=== PATIENT | female | born 1960 | race Two or more races ===

== ENCOUNTER 2016-08-17 15:27 | Emergency (ER) | payer OTHER ==
[~2016-08-17] VITALS: Ht 165.1 cm; Wt 61.2 kg
[2016-08-17 15:45] VITALS: BP 102/64
[2016-08-17 16:00] VITALS: BP 102/64
--- NOTE | 2016-08-17 17:33 | Emergency Room Report ---
History of Present Illness General Chief Complaint: Upper Extremity Injury Source: Patient Present Illness HPI Pt LWBS Allergies: Coded Allergies: No Known Allergies (Unverified , 08/17/16) Nursing Documentation-[facility] Past Medical History: No Stated History Physical Exam Vital Signs Date Time Temp Pulse Resp B/P Pulse Ox O2 Delivery O2 Flow Rate FiO2 08/17/16 15:39 98.4 77 18 102/64 95 Room Air Medical Decision Making PA Attestation Dr. Mason is my supervising physician. Patient management was discussed with my supervising physician Diagnostic Impression: Primary Impression: Injury of upper extremity ER Course Pt LWBS Chest X-Ray Diagnostic Results Chest X-Ray Ordered: No Last Vital Signs Date Time Temp Pulse Resp B/P Pulse Ox O2 Delivery O2 Flow Rate FiO2 08/17/16 16:00 98.4 18 102/64 95 Room Air 08/17/16 15:39 77 Disposition: LEFT W/OUT BEING SEEN Condition: Unknown Referrals: NOT CHOSEN IPA/,REFERRING (PCP) DANIA HERNANDEZ Aug 17, 2016 17:33
== END 2016-08-17 16:00 | disposition left against medical advice (07) ==
LOC: EMR 15:55
DX: T14.90 Injury, unspecified (principal); Z53.21 Procedure and treatment not carried out due to patient leaving prior to being seen by health care provider
CPT/HCPCS: 99281